=== PATIENT | male | born 1945 | race Caucasian/White ===

== ENCOUNTER 2018-05-09 14:27 | Inpatient (IN) | payer MEDICARE, BC ==
[~2018-05-09] VITALS: Ht 170.2 cm; Wt 65.9 kg
--- NOTE | ~2018-05-09 | CN ---
PATIENT NAME:ELIZ HERNANDEZ MEDICAL RECORD: [id number] : 43 LOCATION:D. D.2131 ADMIT DATE: 05/09/18 ACCOUNT: [id number] CONSULTING PHYSICIAN: DENISE BARNHART MD REFERRING PHYSICIAN: RAH HIGGINS MD DATE OF CONSULTATION: 05/10/2018 CONSULT REQUESTING PHYSICIAN: Krish Guo MD REASON FOR CONSULTATION: Bilateral lung masses and cavitating lung lesion. HISTORY OF PRESENT ILLNESS: Mr. Hernandez is a 73-year-old gentleman who is sick for the last one month. He was seen in the walk-in clinic and he had abnormal chest radiograph. The patient was sent to the ER for lung masses. He had CTA of the chest which did not show any PE, but it showed bilateral lung lesion and also lytic bone lesion. Some lesions in the lung were cavitating. He was running fever a few weeks ago. He is losing weight, almost 20 pounds over the last one month. Sometimes, he has night sweats. REVIEW OF THE SYSTEMS: As in history of present illness. PAST MEDICAL HISTORY: 1. Neuropathy. 2. Diabetes mellitus type 2. 3. Diverticulosis. 4. Anxiety. PAST SURGICAL HISTORY: He had bicep reattachment in 1995. ALLERGY: There is no known drug allergy. MEDICATIONS: [employer] is reviewed. PERSONAL AND SOCIAL HISTORY: The patient is an ex-smoker. He quit 20 years ago. He is nondrinker. FAMILY HISTORY: Significant for cardiovascular diseases. PHYSICAL EXAMINATION: GENERAL: Now, the patient is lying comfortably in bed. He is not in acute distress. VITAL SIGNS: Blood pressure is 152/82, pulse is 86, respiration is 19, temperature is 98.4, and SpO2 is 93% on room air. HEENT: Conjunctivae are pink. Sclerae are not icteric. NECK: Neck is supple. No JVD. CHEST: The chest excursion is minimal on both sides. There is a basal crackle. HEART: Rhythm regular. Normal sound. No murmur. ABDOMEN: Abdomen is soft. Bowel sounds present. No hepatosplenomegaly. RECTAL: Deferred. EXTREMITIES: No cyanosis. No clubbing. No pedal edema. CENTRAL NERVOUS SYSTEM: The patient is awake and alert. There is no obvious cranial nerve abnormality. The gait was not tested. DIAGNOSTIC DATA: CT scan of the chest; there is no pulmonary embolism. There are bilateral lung masses, 4.6 x 3.5 cm. There is mediastinal lymphadenopathy. CONSULT REPORT [id number] ELIZ HERNANDEZ There is small right-sided pleural effusion. There is cavitating lesion. There is also lytic lesion. There is a 2.4-cm adrenal nodule. IMPRESSION: 1. Lung mass. Rule out malignant process with lytic lesion, possible metastatic lesion. 2. Cavitating lung lesion with lung abscess, possible squamous cell carcinoma, possible lung abscess, mediastinal lymphadenopathy. 3. Right pleural effusion. 4. Lytic bone lesion. 5. Unexplained weight loss. 6. Adrenal nodule. 7. Suspect COPD with a remote history of smoking. RECOMMENDATION: 1. Continue Rocephin. I will discontinue Zithromax. 2. I will start on clindamycin to cover for anaerobes. 3. The patient is scheduled for the bone marrow biopsy. If it is nondiagnostic, we will do the CT-guided lung biopsy. 4. Dr. Mercado is already on the case. Check fungal serology and QuantiFERON gold TB test. Check CASPER level. Check the ANCA level. Follow up labs and chest radiograph. Thank you for involving me in the care of Mr. Hernandez. TRANSINT:[id number] Voice Confirmation ID: [id number] DOCUMENT ID: [id number] DENISE BARNHART MD at 1711 CC: [id number] DICTATION DATE: 05/10/181926 TOWER ERECTOR: 05/10/18 2240 ADM IN [place] [id number] [place] [address]
--- NOTE | ~2018-05-09 | MORECARE ---
CASE MANAGEMENT DISCHARGE SUMMARY PATIENT: ELIZ HERNANDEZ UNIT: [id number] ADM DATE: 05/09/18 AGE: 73 : 43 SEX: M ROOM/BED: D.2131 AUTHOR: ADAMARIS POPE PHYSICIAN: REFERRING PHYSICIAN: RAH HIGGINS MD DATE OF SERVICE: 05/17/18 Discharge Plan Patient Name: ELIZ HERNANDEZ Facility: [facility] : 1945 Planned Disposition: Home Anticipated Discharge Date: 05/16/18 Discharge Date: 05/16/2018 Expected LOS: 7 Initial Reviewer: [email or web address] Initial Review Date: 05/17/2018 Generated: 05/17/18 1:20 pm Comments DCP- Discharge Planning Updated by [email or web address]: Tammy Sanchez on 05/16/18 6:[address] LATE ENTRY 0945 CM AWAITED THE VISIT OF THE TO GET DISCHARGE IMM SIGNED AND PROVIDE CHART COPY WITH DISC. FOUND CHART COPY. HAD OIL HEATER OPERATOR TO CALL FOR X/R DISC IT WAS NOT PRESENT WITH THE CHART. CM PLAN TO COMPLETE DISCHARGE PLANNING NOTES. WITH THE . CM HAD TO LEAVE THE UNIT TO GO TO ANOTHER UNIT. PATIENT HAD BEEN DISCHARGED WHEN CM RETURNED. DCP- Discharge Planning Updated by [email or web address]: Tammy Sanchez on 05/15/18 5:[address] CM CONSULT FOR PATIENT WHO WILL BE RETURNING TO HIS HOME AT DISCHARGE. CM MET DR PAGE. HE REQUEST THAT THE PATIENT BE PROVIDED WITH COPY OF HIS MEDICAL RECORDS AND DISC WITH RADIOLOGY STUDIES. THE PATIENT WILL BE SEEKING TREATMENT IN HIS HOME STATE. HIS WAS NOT AT THE BEDSIDE. HE REQUEST THAT I SPEAK WITH HER. PATRICIA RAMOSJOSE ASHANNAN - [phone] CORECTION OF PATIENT'S CONTACT PHONE NUMBER IS [phone]. HIS AND DAUGHTER ARE AT [facility] PER THE PATIENT. DR PAGE ALSO REQUEST THAT PATIENT BE GIVEN HIS CONTACT INFORMATION FOR HIS OFFICE WITH CONTACT [facility]. CM TO FOLLOW TO MET WITH THE . Patient Name: ELIZ HERNANDEZ Page [id number] at 1220 All edits/amendments must be made on the electronic document DICTATION DATE: 05/17/18 1220 WALNUT DEHYDRATOR OPERATOR: [email or web address] 05/17/18 1220 RPT#: [id number] DC DATE:05/16/18 STATUS: DIS IN [facility] [address] [place] [id number] END OF REPORT
[2018-05-09] MEDS ORDERED: KRILL OIL 1,001 EAC1 PO (14:36)
[2018-05-09] MEDS ORDERED: LISINOPRIL10 MG PO (14:36)
[2018-05-09 15:36] VITALS: BP 140/73
[2018-05-09 16:08] LABS: BASOPHILS 0.1 % (0-2); EOSINOPHILS 1.9 % (0-7); HEMATOCRIT 38.7 % (42.0-54.0); HEMOGLOBIN 13.6 g/dL (13.5-17.5); IMMATURE GRANULOCYTES 0.1 % (0-5); LYMPHOCYTES 11.4 % (15-50); MCH 32.6 pg (26.0-34.0); MCHC 35.1 g/dL (31.0-37.0); MCV 92.8 fL (80.0-100.0); MEAN PLATELET VOLUME 9.7 fL (7.4-10.4); MONOCYTES 11.3 % (2-11); NEUTROPHILS 75.2 % (40-80); PLATELET COUNT 154 10x3/uL (130-400); RBC 4.17 10x6/uL (4.20-6.10); RDW 12.1 % (11.5-14.5); WBC 7.7 10x3/uL (4.8-10.8)
[2018-05-09 16:24] LABS: ALBUMIN 3.3 g/dL (3.4-5.0); ALKALINE PHOSPHATASE 94 U/L (46-116); ALT (SGPT) 45 U/L (10-68); BILIRUBIN - TOTAL 0.44 mg/dL (0.2-1.3); CALC OSMOLALITY 264 mosm/kg (275-300); CALCIUM 9.3 mg/dL (8.5-10.1); CARBON DIOXIDE 26.1 mmol/L (21.0-32.0); CHLORIDE - SERUM 92 mmol/L (98-107); CREATININE - SERUM 0.8 mg/dL (0.6-1.3); GLUCOSE 133 mg/dL (74-106); POTASSIUM - SERUM 4.1 mmol/L (3.5-5.1); PROTEIN - SERUM 7.7 g/dL (6.4-8.2); SODIUM 129 mmol/L (136-145); UREA NITROGEN 25 mg/dL (7-18); eGFR NON AFRICAN AMERICAN > 90 mL/min (90-120)
[2018-05-09 16:31] LABS: INR 1.29 (0.85-1.17); PROTIME 15.5 SECONDS (11.6-15.0)
[2018-05-09 16:39] LABS: CKMB 1.8 U/L (0.0-3.6); CREATINE KINASE 69 UL (21-232); PRO BNP 230 pg/mL (0-125)
[2018-05-09 16:49] LABS: TROPONIN-I 0.088 ng/mL (0.000-0.060)
[2018-05-09 17:14] LABS: D-DIMER-QUANTITATIVE > 20.00 ug/mLFEU (0.20-0.54)
[2018-05-09 17:27] VITALS: BP 151/76
[2018-05-09 21:36] VITALS: BP 145/83; BMI 24.8
[2018-05-09] MEDS ORDERED: ZANAFLEX4 MG PO (22:13)
[2018-05-09] MEDS ORDERED: DICLOFENAC SODI50 MG PO (22:14)
[2018-05-09] MEDS ORDERED: VITAMIN D31000 UNIT PO (22:15)
[2018-05-09] MEDS ORDERED: VITAMIN B-121000 MCG PO (22:15)
[2018-05-09] MEDS ORDERED: BAYER CHEWABLE81 MG PO (22:16)
[2018-05-09] MEDS ORDERED: [UNRECOGNIZED DRUG - OTHER] (22:17)
[2018-05-09] MEDS ORDERED: ALBUTEROL SULF8.5 GM INH (22:18)
[2018-05-10] VITALS: BP 128/65
[2018-05-10 04:00] VITALS: BP 148/80
[2018-05-10 08:06] VITALS: BP 165/81
[2018-05-10 11:40] VITALS: BP 167/83
[2018-05-10 13:39] LABS: CKMB 0.9 U/L (0.0-3.6); CREATINE KINASE 70 UL (21-232); TROPONIN-I 0.092 ng/mL (0.000-0.060)
[2018-05-10 16:03] VITALS: BP 152/82
[2018-05-10 19:00] VITALS: BP 144/81
[2018-05-10 19:32] LABS: CKMB 0.8 U/L (0.0-3.6); CREATINE KINASE 63 UL (21-232)
[2018-05-10 19:41] LABS: TROPONIN-I 0.106 ng/mL (0.000-0.060)
[2018-05-11] VITALS (12 sets, daily range): BP systolic 121–152; BP diastolic 62–85
[2018-05-11 01:57] LABS: CKMB 13.1 U/L (0.0-3.6); CREATINE KINASE 173 UL (21-232)
[2018-05-11 01:58] LABS: TROPONIN-I 3.336 ng/mL (0.000-0.060)
[2018-05-11 05:21] LABS: BASOPHILS 0.2 % (0-2); EOSINOPHILS 2.6 % (0-7); HEMATOCRIT 40.1 % (42.0-54.0); HEMOGLOBIN 14.2 g/dL (13.5-17.5); IMMATURE GRANULOCYTES 0.3 % (0-5); LYMPHOCYTES 13.8 % (15-50); MCH 32.8 pg (26.0-34.0); MCHC 35.4 g/dL (31.0-37.0); MCV 92.6 fL (80.0-100.0); MONOCYTES 12.9 % (2-11); NEUTROPHILS 70.2 % (40-80); PLATELET COUNT 160 10x3/uL (130-400); RBC 4.33 10x6/uL (4.20-6.10); RDW 12.2 % (11.5-14.5); WBC 8.8 10x3/uL (4.8-10.8)
[2018-05-11 05:39] LABS: APTT 29.1 SECONDS (22.8-39.4); INR 1.28 (0.85-1.17); PROTIME 15.4 SECONDS (11.6-15.0)
[2018-05-11 05:45] LABS: ALBUMIN 3.3 g/dL (3.4-5.0); ALKALINE PHOSPHATASE 97 U/L (46-116); BILIRUBIN - TOTAL 0.45 mg/dL (0.2-1.3); CALCIUM 9.3 mg/dL (8.5-10.1); CARBON DIOXIDE 25.8 mmol/L (21.0-32.0); CHLORIDE - SERUM 96 mmol/L (98-107); CREATININE - SERUM 0.7 mg/dL (0.6-1.3); GLUCOSE 122 mg/dL (74-106); POTASSIUM - SERUM 3.9 mmol/L (3.5-5.1); PROTEIN - SERUM 7.8 g/dL (6.4-8.2); SODIUM 131 mmol/L (136-145); eGFR NON AFRICAN AMERICAN > 90 mL/min (90-120)
[2018-05-11 06:16] LABS: ALT (SGPT) 62 U/L (10-68); CALC OSMOLALITY 264 mosm/kg (275-300); UREA NITROGEN 16 mg/dL (7-18)
[2018-05-12 01:09] VITALS: BP 139/86
[2018-05-12 04:48] VITALS: BP 136/78
[2018-05-12 06:17] LABS: BASOPHILS 0.1 % (0-2); EOSINOPHILS 2.3 % (0-7); HEMATOCRIT 39.7 % (42.0-54.0); HEMOGLOBIN 14.1 g/dL (13.5-17.5); IMMATURE GRANULOCYTES 0.4 % (0-5); LYMPHOCYTES 12.8 % (15-50); MCH 32.6 pg (26.0-34.0); MCHC 35.5 g/dL (31.0-37.0); MCV 91.9 fL (80.0-100.0); MEAN PLATELET VOLUME 9.2 fL (7.4-10.4); MONOCYTES 13.5 % (2-11); NEUTROPHILS 70.9 % (40-80); PLATELET COUNT 166 10x3/uL (130-400); RBC 4.32 10x6/uL (4.20-6.10); RDW 12.1 % (11.5-14.5); WBC 9.7 10x3/uL (4.8-10.8)
[2018-05-12 06:30] LABS: ALBUMIN 3.2 g/dL (3.4-5.0); ALKALINE PHOSPHATASE 99 U/L (46-116); ALT (SGPT) 65 U/L (10-68); BILIRUBIN - TOTAL 0.76 mg/dL (0.2-1.3); CALC OSMOLALITY 263 mosm/kg (275-300); CALCIUM 9.3 mg/dL (8.5-10.1); CARBON DIOXIDE 25.4 mmol/L (21.0-32.0); CHLORIDE - SERUM 94 mmol/L (98-107); CREATININE - SERUM 0.8 mg/dL (0.6-1.3); GLUCOSE 135 mg/dL (74-106); MAGNESIUM - SERUM 1.8 mg/dL (1.8-2.4); POTASSIUM - SERUM 3.8 mmol/L (3.5-5.1); PROTEIN - SERUM 7.7 g/dL (6.4-8.2); SODIUM 130 mmol/L (136-145); UREA NITROGEN 14 mg/dL (7-18); eGFR NON AFRICAN AMERICAN > 90 mL/min (90-120)
[2018-05-12 08:09] VITALS: BP 145/77
[2018-05-12 12:38] VITALS: BP 121/79
[2018-05-12 13:00] LABS: APTT 27.6 SECONDS (22.8-39.4); INR 1.28 (0.85-1.17); PROTIME 15.5 SECONDS (11.6-15.0)
[2018-05-12 16:00] VITALS: BP 130/79
[2018-05-12 21:30] VITALS: BP 142/78
[2018-05-13 00:57] VITALS: BP 140/76
[2018-05-13 03:11] LABS: ANGIOTENSIN CONVERTING ENZYME < 15 U/L (14-82)
[2018-05-13 05:32] VITALS: BP 119/76
[2018-05-13 05:59] LABS: BASOPHILS 0 % (0-2); EOSINOPHILS 0.2 % (0-7); HEMATOCRIT 39.6 % (42.0-54.0); HEMOGLOBIN 14.3 g/dL (13.5-17.5); IMMATURE GRANULOCYTES 0.6 % (0-5); LYMPHOCYTES 9.1 % (15-50); MCHC 36.1 g/dL (31.0-37.0); MCV 91.5 fL (80.0-100.0); MEAN PLATELET VOLUME 9.2 fL (7.4-10.4); MONOCYTES 9.8 % (2-11); NEUTROPHILS 80.3 % (40-80); PLATELET COUNT 178 10x3/uL (130-400); RBC 4.33 10x6/uL (4.20-6.10); WBC 8.5 10x3/uL (4.8-10.8)
[2018-05-13 06:19] LABS: ALBUMIN 3.1 g/dL (3.4-5.0); ALKALINE PHOSPHATASE 95 U/L (46-116); ALT (SGPT) 57 U/L (10-68); BILIRUBIN - TOTAL 0.44 mg/dL (0.2-1.3); CALCIUM 9.4 mg/dL (8.5-10.1); CARBON DIOXIDE 24.7 mmol/L (21.0-32.0); CHLORIDE - SERUM 96 mmol/L (98-107); CREATININE - SERUM 0.8 mg/dL (0.6-1.3); GLUCOSE 137 mg/dL (74-106); MAGNESIUM - SERUM 1.9 mg/dL (1.8-2.4); PROTEIN - SERUM 7.6 g/dL (6.4-8.2); SODIUM 132 mmol/L (136-145); eGFR NON AFRICAN AMERICAN > 90 mL/min (90-120)
[2018-05-13 06:25] LABS: CALC OSMOLALITY 269 mosm/kg (275-300); POTASSIUM - SERUM 4.5 mmol/L (3.5-5.1); UREA NITROGEN 20 mg/dL (7-18)
[2018-05-13 08:01] VITALS: BP 157/91
[2018-05-13 11:52] VITALS: BP 128/76
[2018-05-13 14:01] VITALS: Ht 170.2 cm; Wt 65.9 kg
[2018-05-13 15:20] VITALS: BP 125/77
[2018-05-13 16:14] LABS: ANCA - ANTIMYELOPEROXIDASE <9.0 U/mL (0.0-9.0); ANCA - ANTIPROTEINASE 3 <3.5 U/mL (0.0-3.5); ANCA - ATYPICAL <1:20 titer (Neg:<1:20); ANCA - CYTOPLASMIC <1:20 titer (Neg:<1:20); ANCA - PERINUCLEAR <1:20 titer (Neg:<1:20)
[2018-05-13 21:34] VITALS: BP 158/82
[2018-05-14 01:20] VITALS: BP 134/90
[2018-05-14 06:20] LABS: BASOPHILS 0.2 % (0-2); EOSINOPHILS 3.1 % (0-7); HEMATOCRIT 40.6 % (42.0-54.0); HEMOGLOBIN 14.4 g/dL (13.5-17.5); IMMATURE GRANULOCYTES 0.5 % (0-5); LYMPHOCYTES 12.4 % (15-50); MCH 32.7 pg (26.0-34.0); MCHC 35.5 g/dL (31.0-37.0); MCV 92.3 fL (80.0-100.0); MEAN PLATELET VOLUME 9.4 fL (7.4-10.4); MONOCYTES 11.2 % (2-11); NEUTROPHILS 72.6 % (40-80); PLATELET COUNT 182 10x3/uL (130-400); RDW 12.4 % (11.5-14.5)
[2018-05-14 06:24] LABS: WBC 11.3 10x3/uL (4.8-10.8)
[2018-05-14 06:38] VITALS: BP 147/88
[2018-05-14 06:44] LABS: ALBUMIN 3.2 g/dL (3.4-5.0); ALKALINE PHOSPHATASE 96 U/L (46-116); ALT (SGPT) 59 U/L (10-68); BILIRUBIN - TOTAL 0.54 mg/dL (0.2-1.3); CALC OSMOLALITY 271 mosm/kg (275-300); CALCIUM 9.7 mg/dL (8.5-10.1); CARBON DIOXIDE 24.2 mmol/L (21.0-32.0); CHLORIDE - SERUM 96 mmol/L (98-107); CREATININE - SERUM 0.8 mg/dL (0.6-1.3); GLUCOSE 134 mg/dL (74-106); MAGNESIUM - SERUM 1.8 mg/dL (1.8-2.4); POTASSIUM - SERUM 4.2 mmol/L (3.5-5.1); PROTEIN - SERUM 7.7 g/dL (6.4-8.2); SODIUM 133 mmol/L (136-145); UREA NITROGEN 25 mg/dL (7-18); eGFR NON AFRICAN AMERICAN > 90 mL/min (90-120)
[2018-05-14 09:41] VITALS: BP 145/82
[2018-05-14 10:19] LABS: CEA 3.1 ng/mL (0.0-4.7)
[2018-05-14 13:11] VITALS: BP 129/75
[2018-05-14 13:15] LABS: FOLATE (FOLIC ACID) - SERUM 3.8 ng/mL (>3.0)
[2018-05-14 16:47] VITALS: BP 107/72
[2018-05-14 17:12] LABS: SPE - A/G RATIO 0.8 (0.7-1.7); SPE - ALBUMIN 3.1 g/dL (2.9-4.4); SPE - ALPHA-1 GLOBULIN 0.4 g/dL (0.0-0.4); SPE - ALPHA-2 GLOBULIN 1.1 g/dL (0.4-1.0); SPE - BETA GLOBULIN 1.1 g/dL (0.7-1.3); SPE - GAMMA GLOBULIN 1.1 g/dL (0.4-1.8); SPE - M-SPIKE Not Observed g/dL (Not Observed); SPE - TOTAL PROTEIN 6.9 g/dL (6.0-8.5)
[2018-05-14 20:00] VITALS: BP 144/85
[2018-05-15] VITALS: BP 132/82
[2018-05-15 04:00] VITALS: BP 136/78
[2018-05-15 05:35] LABS: BASOPHILS 0.2 % (0-2); EOSINOPHILS 0.4 % (0-7); HEMOGLOBIN 13.9 g/dL (13.5-17.5); IMMATURE GRANULOCYTES 0.3 % (0-5); LYMPHOCYTES 9.7 % (15-50); MCH 32.8 pg (26.0-34.0); MCHC 35.6 g/dL (31.0-37.0); MEAN PLATELET VOLUME 9.2 fL (7.4-10.4); MONOCYTES 9.7 % (2-11); NEUTROPHILS 79.7 % (40-80); RBC 4.24 10x6/uL (4.20-6.10); RDW 12.4 % (11.5-14.5); WBC 12.7 10x3/uL (4.8-10.8)
[2018-05-15 05:37] LABS: PLATELET COUNT 220 10x3/uL (130-400)
[2018-05-15 05:58] LABS: ALBUMIN 3.1 g/dL (3.4-5.0); ALKALINE PHOSPHATASE 85 U/L (46-116); ALT (SGPT) 49 U/L (10-68); BILIRUBIN - TOTAL 0.45 mg/dL (0.2-1.3); CALC OSMOLALITY 270 mosm/kg (275-300); CALCIUM 9.6 mg/dL (8.5-10.1); CARBON DIOXIDE 23.7 mmol/L (21.0-32.0); CHLORIDE - SERUM 96 mmol/L (98-107); CREATININE - SERUM 0.7 mg/dL (0.6-1.3); GLUCOSE 130 mg/dL (74-106); POTASSIUM - SERUM 4.3 mmol/L (3.5-5.1); PROTEIN - SERUM 7.5 g/dL (6.4-8.2); SODIUM 132 mmol/L (136-145); UREA NITROGEN 25 mg/dL (7-18); eGFR NON AFRICAN AMERICAN > 90 mL/min (90-120)
[2018-05-15 09:50] VITALS: BP 149/84
[2018-05-15] MEDS ORDERED: PLAVIX75 MG PO (13:58)
[2018-05-15] MEDS ORDERED: ASPIRIN325 MG PO (13:59)
[2018-05-15 16:40] VITALS: BP 141/76
[2018-05-15 19:08] LABS: FUNGAL - ASP FLAVUS Negative (Neg:<1:1); FUNGAL - ASP NIGER Negative (Neg:<1:1); FUNGAL - ASPER FUMIGATUS Negative (Neg:<1:1)
[2018-05-15 20:00] VITALS: BP 103/63
[2018-05-16] VITALS: BP 125/78
[2018-05-16 04:00] VITALS: BP 117/75
[2018-05-16 06:33] LABS: BASOPHILS 0.1 % (0-2); EOSINOPHILS 0.5 % (0-7); HEMATOCRIT 39.9 % (42.0-54.0); HEMOGLOBIN 14.2 g/dL (13.5-17.5); IMMATURE GRANULOCYTES 0.5 % (0-5); MCH 32.9 pg (26.0-34.0); MCHC 35.6 g/dL (31.0-37.0); MCV 92.6 fL (80.0-100.0); MEAN PLATELET VOLUME 9.5 fL (7.4-10.4); MONOCYTES 10.6 % (2-11); NEUTROPHILS 79.3 % (40-80); PLATELET COUNT 238 10x3/uL (130-400); RBC 4.31 10x6/uL (4.20-6.10); RDW 12.2 % (11.5-14.5); WBC 14.4 10x3/uL (4.8-10.8)
[2018-05-16 09:00] VITALS: BP 141/84
[2018-05-16] MEDS ORDERED: DILANTIN100 MG PO (09:08)
== END 2018-05-16 11:44 | disposition home or self-care (01) | DRG 180 ==
LOC: D.ER 14:27 → D.M2 20:04
PROVIDERS: Family Medicine; Internal Medicine Hematology & Oncology; Internal Medicine Pulmonary Disease; Radiology Diagnostic Radiology
PROC: 0BBK3ZX Excision of Right Lung, Percutaneous Approach, Diagnostic (ICD-10-PCS; principal; 2018-05-11 09:30)
DX: C34.31 Malignant neoplasm of lower lobe, right bronchus or lung (principal); I63.9 Cerebral infarction, unspecified; E11.65 Type 2 diabetes mellitus with hyperglycemia; E11.40 Type 2 diabetes mellitus with diabetic neuropathy, unspecified; K57.90 Diverticulosis of intestine, part unspecified, without perforation or abscess without bleeding; I10 Essential (primary) hypertension; F41.9 Anxiety disorder, unspecified; E27.9 Disorder of adrenal gland, unspecified; R63.4 Abnormal weight loss; Z87.891 Personal history of nicotine dependence; Z68.23 Body mass index [BMI] 23.0-23.9, adult; J44.9 Chronic obstructive pulmonary disease, unspecified